=== PATIENT | female | born 1975 | race African-American/Black ===

== ENCOUNTER 2021-04-11 08:46 | Outpatient (CLI) | payer BC | END 2021-04-11 08:47 | disposition home or self-care (01) | LOC: BICULT 08:46 | PROVIDERS: ATTEND Internal Medicine | DX: Z12.11 Encounter for screening for malignant neoplasm of colon (principal); R94.5 Abnormal results of liver function studies; D50.9 Iron deficiency anemia, unspecified; R12 Heartburn; K76.0 Fatty (change of) liver, not elsewhere classified | CPT/HCPCS: 93975 ==